=== PATIENT | female | born 1965 ===

== ENCOUNTER 2017-03-10 07:27 | Day surgery (SDC) | payer BC ==
[~2017-03-10] VITALS: Ht 165.1 cm; Wt 78.0 kg
[2017-03-10] VITALS (10 sets, daily range): BP systolic 137–162; BP diastolic 76–95
--- NOTE | 2017-03-10 06:58 | Anethesia Preoperative Eval ---
Anesthesia Pre-op PMH/ROS General Date of Evaluation: Mar 10, 2017 Time of Evaluation: 06:57 Anesthesiologist: [place] ASA Score: ASA 2 Mallampati Score Class I : Soft palate, uvula, fauces, pillars visible Class II: Soft palate, uvula, fauces visible Class III: Soft palate, base of uvula visible Class IV: Only hard plate visible Mallampati Classification: Class II Surgeon: shmuel Diagnosis: colon screening Surgical Procedure: colonoscopy Anesthesia History: none Social History: smoking - nonsmoker Family History: no anesthesia problems Allergies: Coded Allergies: No Known Allergies (Unverified , 03/09/17) Medications: see eMAR Past Medical History Gastrointestinal/Genitourinary: Reports: other - fibroids Neurologic/Psychiatric: Reports: depression/anxiety Hematology/Immune: Reports: anemia Anesthesia Pre-op Phys. Exam Physician Exam Constitutional: NAD Neurologic: CN 2-12 intact Cardiovascular: RRR Respiratory: CTA Gastrointestinal: S/NT/ND Airway Exam Mallampati Score: Class II MO: full Neck: supple TMD: 2fb ROM: full Teeth: intact Anesthesia Pre-op A/P Risk Assessment & Plan Assessment: asa2 Plan: mac Status Change Before Surgery: No Pre-Antibiotics Drug: CIARRA Whitt Mar 10, 2017 06:58
[~2017-03-10 07:27] MED LIST: DUEXIS 800-26.1 EACH PO; LR 1000ml 1,000 ML IVLG SCH
--- NOTE | 2017-03-10 08:30 | Short Stay Surgery H&P ---
History of Present Illness History of Present Illness Chief Complaint Screening colonoscopy HPI Rimma Ibarra is a 51 year old female who was admitted on for Colon Screening Patient History Allergies: Coded Allergies: No Known Allergies (Unverified , 03/09/17) PAST MEDICAL HISTORY: Past Surgeries: Social History: Medication History Scheduled Ibuprofen/Famotidine (Duexis 800-26.6 Mg Tablet), 1 EACH PO DAILY, (Reported) Review of Systems Cardiovascular: Reports: no symptoms Respiratory: Reports: no symptoms Skeletal: Reports: no symptoms Gastrointestinal: Reports: no symptoms Genitourinary: Reports: no symptoms Neurologic: Reports: no symptoms Endocrine: Reports: no symptoms Hematologic: Reports: no symptoms Physical Exam Vital Signs Last Vital Signs Date Time Temp Pulse Resp B/P (MAP) Pulse Ox O2 Delivery O2 Flow Rate FiO2 03/10/17 08:17 98.3 81 18 142/78 98 Room Air Skin: normal HENT: normal Heart: normal Lungs: normal Abdomen: normal Extremities: normal Genitourinary: normal Plan Plan of Care Colonoscopy Preop Interventions None. Summary of Findings See the report Final Diagnosis: Attestation Are the patient's medical conditions optimized for surgery? Attestation Response: yes MIRYAM CASTILLO Mar 10, 2017 08:30
--- NOTE | 2017-03-10 08:30 | Pre-Procedure Note/Attestation ---
Pre-Procedure Note/Attestation Complete Prior to Procedure Planned Procedure: left Procedure Narrative: Endoscopic exam of the coloon to R/O cancer/polyp etc. Indications for Procedure Pre-Operative Diagnosis: R/O colon polyps Attestation I attest that I discussed the nature of the procedure; its benefits; risks and complications; and alternatives (and the risks and benefits of such alternatives ), prior to the procedure, with the patient (or the patient's legal franchise sales representative). I attest that, if there was a reasonable possibility of needing a blood transfusion, the patient (or the patient's legal franchise sales representative) was given the [place] Department [employer] standardized written summary, pursuant to the Marcelino Harris Blood Safety Act ([place] Health and Safety Code # 1645, as amended). I attest that I re-evaluated the patient just prior to the surgery and that there has been no change in the patient's H&P, except as documented below: JONATHAN,SAID Mar 10, 2017 08:30
[2017-03-10] MEDS ORDERED: LR 1000ml 1,000 ML IVLG SCH (08:41)
[2017-03-10] MEDS ORDERED: Midazolam 2mg/2ml Inj IVP PRN (08:45)
[2017-03-10] MEDS ORDERED: Atropine Inj 1mg/10ml Syr IV PRN (08:45)
[2017-03-10] MEDS ORDERED: fentaNYL 100 mcg/2 mL IV PRN (08:45)
[2017-03-10] MEDS ORDERED: DiphenhydrAMINE 50mg/ml Inj IVP PRN (08:45)
[2017-03-10] MEDS ORDERED: Propofol 200mg/20ml IV ONE (09:00)
[2017-03-10] MEDS ORDERED: Lidocaine 1% MPF 10mg/ml 5ml ONE (09:00)
[2017-03-10] MEDS ORDERED: LR 1000ml ONE (09:00)
--- NOTE | 2017-03-10 09:20 | Endoscopy Procedure Note ---
Endoscopy Procedure Note Indication for Procedure: Screening colon Procedures Performed: colonoscopy - small internal fregile hemorrhoids; otherwise completely normal colonoscopy. Specimen: none Pt Tolerated Procedure Well: Yes Estimated Blood Loss: minimal Anesthesiologist: Dr. Adams Anesthesia: moderate sedation Medication Given: see anesthesia record Implant(s) used?: No 50 yrs or older w/o bx or poly: Yes 10yrs. F/U not recommended: Yes 10 yrs. F/U needed: Yes 18 years or older w/prev. colo: No <3yrs. since last colonoscopy: No Med reason:<3 yrs.: System Reason:<3 yrs.: Last colonoscopy >= to 3yrs: Yes MIRYAM CASTILLO Mar 10, 2017 09:20
--- NOTE | 2017-03-10 09:21 | Discharge Instructions ---
Discharge Instructions Discharge Instructions Follow up with: Use the pointment daily and see doctor after 2 weeks For Congestive Heart Failure Reminder Report to your physician any weight gain of 5 pounds or more in one week. JONATHAN,SAID Mar 10, 2017 09:21
--- NOTE | 2017-03-10 12:57 | Immediate Post-Op Evaluation ---
Immediate Post-Op Evalulation Immediate Post-Op Evalulation Procedure: colonoscopy Date of Evaluation: Mar 10, 2017 Time of Evaluation: 09:40 IV Fluids: 150ml lr Blood Products: none Estimated Blood Loss: negligible Blood Pressure Systolic: 151 Blood Pressure Diastolic: 89 Pulse Rate: 69 Respiratory Rate: 18 O2 Sat by Pulse Oximetry: 99 Temperature (Fahrenheit): 98.1 Pain Score (1-10): 0 Nausea: No Vomiting: No Complications none Patient Status: awake, reacts, patent Hydration Status: adequate Drug: CIARRA Whitt Mar 10, 2017 12:57
--- NOTE | 2017-03-10 12:59 | 48 Hour Post Anesthesia Eval ---
Post Anesthesia Evaluation Procedure: colonoscopy Date of Evaluation: Mar 10, 2017 Time of Evaluation: 09:42 Blood Pressure Systolic: 155 0: 88 Pulse Rate: 77 Respiratory Rate: 18 Temperature (Fahrenheit): 98.1 O2 Sat by Pulse Oximetry: 100 Airway: patent Nausea: No Vomiting: No Pain Intensity: 0 Hydration Status: adequate Cardiopulmonary Status: stable Mental Status/LOC: patient returned to baseline Post-Anesthesia Complications: none Follow-up care needed: N/A CIARRA UMANA Mar 10, 2017 12:59
--- NOTE | 2017-03-10 18:46 | Procedure Note ---
DATE OF PROCEDURE: 03/10/2017 SURGEON: Lizz Dawson M.D. PROCEDURE: Total colonoscopy. PREOPERATIVE DIAGNOSIS: Screening colonoscopy. POSTOPERATIVE DIAGNOSIS: Minimal internal fragile hemorrhoid, otherwise, complete normal total colonoscopy up to the base of the cecum as examined. MEDICATION USED: Per Dr. Adams, anesthesiologist. INSTRUMENT: GIF Olympus video colonoscope. DESCRIPTION OF PROCEDURE: The patient after arriving at the endoscopy unit, she was told about risks and benefits of the procedure, which she accepted and signed informed consent. At this time, the scope was gradually advanced into the anal area and careful examination of this section revealed evidence of minimal internal hemorrhoids, which were friable and started bleeding minimally that they were flushed with superficial epinephrine solution. At this point, the rest of the rectum looked quite normal. The bleeding seems to have stopped and at this time, the scope was gradually advanced into the rectosigmoid area and forced into descending colon reaching to the splenic flexure, from there into transverse colon, hepatic flexure, and right colon all the way to the base of the cecum. All these areas remained to be completely normal, and there was no any evidence of pathology such as tumor, polyps, inflammatory process, ulceration, etc. The colon cleanup was adequate and at this point after reaching to the base of the cecum within 7 minutes, the scope was gradually pulled out and no other pathology was found as mentioned. The patient tolerated the procedure well and left the endoscopy room in a good condition. Lizz Dawson M.D. DR: Emy JOB#: [id number] CC:
== END 2017-03-10 10:35 | disposition home or self-care (01) ==
LOC: GAS 07:27
DX: Z12.11 Encounter for screening for malignant neoplasm of colon (principal); K64.8 Other hemorrhoids; F32.9 Major depressive disorder, single episode, unspecified; F41.9 Anxiety disorder, unspecified; Z79.1 Long term (current) use of non-steroidal anti-inflammatories (NSAID)
CPT/HCPCS: 45382; J0171; J2704; J7120; 94003; 94150